=== PATIENT | female | born 1960 | race African-American/Black ===

== ENCOUNTER 2021-09-25 10:37 | Emergency (ER) | payer OTHER ==
[2021-09-25 11:13] VITALS: TEMP 97.5; O2SAT 99
[2021-09-25 11:14] VITALS: BP 141/74
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
== END 2021-09-25 11:08 | disposition home or self-care (01) ==
LOC: ER 10:37
DX: L30.9 Dermatitis, unspecified (principal); I10 Essential (primary) hypertension; Z88.1 Allergy status to other antibiotic agents
CPT/HCPCS: 99282

== ENCOUNTER 2022-01-03 10:26 | Emergency (ER) | payer OTHER ==
[2022-01-03 11:15] LABS: Absolute Lymphocytes (CBC) 2.5 K/uL (0.7-4.9); Hematocrit 37.3 % (36.0-45.0); Lymphocytes % 45.3 % (15.3-44.8); MPV 9.3 fL (7.6-11.3); RBC Red Blood Cell Count 5.41 M/uL (3.86-4.86)
[2022-01-03] MEDS ORDERED: ASPIRIN 81 MG CHEWABLE TABLET ONE (11:19)
[2022-01-03] MEDS ORDERED: MORPHINE 2 MG/ML SYR ONE (11:19)
[2022-01-03 11:20] LABS: Protime INR 1.02
--- NOTE | 2022-01-03 12:16 | RAD REPORT ---
EXAM DESCRIPTION: RAD - Chest Single View - 01/03/2022 12:08 pm CLINICAL HISTORY: SOB COMPARISON: Two view chest 04/08/2012 TECHNIQUE: AP portable chest image was obtained 01/03/2022 12:08 pm . FINDINGS: Lung volumes are low but no focal mass or consolidations seen. Failure or volume overload are not suspected. Heart and vasculature are normal. No measurable pleural effusion and no pneumothor ax. No acute bony abnormality seen. No acute aortic findings suspected. IMPRESSION: No acute cardiopulmonary process.
[2022-01-03 12:26] LABS: Albumin 3.4 g/dL (3.4-5.0); Bilirubin Direct 0.1 mg/dL (0-0.2); Bilirubin Total 0.6 mg/dL (0.2-1.0); Potassium 3.3 mmol/L (3.5-5.1); Protein, Total 7.3 g/dL (6.4-8.2); Troponin High Sensitivity 3.4 pg/mL (<58.9)
--- NOTE | 2022-01-03 12:41 | RAD REPORT ---
EXAM DESCRIPTION: US - Extremity Venous Uni Ltd - 01/03/2022 11:31 am CLINICAL HISTORY: PAIN Leg swelling and edema. COMPARISON: EXT VENOUS UNI LTD dated 04/12/2015 FINDINGS: Left lower extremity venous system was interrogated with Doppler technique. Normal flow, c ompressibility and augmentation was noted. There is no DVT present. IMPRESSION: No evidence of left lower extremity deep venous thrombosis.
--- NOTE | 2022-01-03 13:05 | RAD REPORT ---
EXAM DESCRIPTION: CT - Chest For Pe Angio - 01/03/2022 12:57 pm CLINICAL HISTORY: Chest pain. shortness of breath COMPARISON: No comparisons TECHNIQUE: CT angiogram of the pulmonary arteries was performed with MIP. All CT scans are performed using dose optimization technique as appropriate and may include automated exposure control or mA/KV adjustment according to patient size. FINDINGS: No evidence of pulmonary thromboembolism. No acute aortic finding demonstrated. The lungs are clear. No significant pericardial or pleural fluid. No concerning bony finding. IMPRESSION: No evidence of pulmonary thromboembolism. No acute lung findings.
[2022-01-03 13:28] LABS: Anisocytosis 1+; Blood Morphology Comment NOTED (NOT SEEN); Hypochromasia 1+; Platelet Estimate ADEQ; White Blood Cell Scan OK (OK)
[2022-01-03 13:29] LABS: Ovalocytes 1+
[2022-01-03] MEDS ORDERED: POTASSIUM 25 MEQ EFFERV TAB ONE (14:19)
--- NOTE | 2022-01-03 15:20 | EDPHYS ---
Physician Documentation [facility] Name: Ban Orta Age: 61 yrs Sex: Female : 1960 Arrival Date: 01/03/2022 Time: 10:28 Bed 4 Private MD: Lena Benedict K ED Physician James Vale HPI: 01/03 11:00 This 61 yrs old Black Female presents to ER via Ambulatory with complaints of Chest cp Pain, Back Pain. 11:00 The patient presents with pain that is acute, with no known mechanism of injury. The cp symptoms are located in the left subscapular area. Onset: The symptoms/episode began/occurred this morning, about 0600. The pain does not radiate. Associated signs and symptoms: Pertinent positives: shortness of breath, Pertinent negatives: abdominal pain, chest pain, numbness, weakness. 11:00 The problem was sustained from unknown cause. cp 11:00 Modifying factors: the patient symptoms are aggravated by movement. cp Historical: - Allergies: 10:38 Levaquin; ap3 - Home Meds: 10:38 Trulicity subcutaneous [Active]; atorvastatin 40 mg oral tab [Active]; losartan 50 mg ap3 oral tab [Active]; Skylar Allergy oral [Active]; - PMHx: 10:38 diabetes mellitus; Hypercholesterolemia; Hypertensive disorder; ap3 - Immunization history:: Client reports receiving the 2nd dose of the Covid vaccine. - Social history:: Smoking status: Patient denies any tobacco usage or history of. ROS: 11:05 Constitutional: Negative for body aches, chills, fever, poor PO intake. cp 11:05 Back: Positive for pain at rest, pain with movement, of the left scapular area and left cp subscapular area. 11:05 Eyes: Negative for injury, pain, redness, and discharge. cp 11:05 ENT: Negative for drainage from ear(s), ear pain, sore throat, difficulty swallowing, difficulty handling secretions. 11:05 Neck: Negative for pain with movement, pain at rest, stiffness. 11:05 Cardiovascular: Negative for chest pain, edema, palpitations. 11:05 Respiratory: Negative for cough, shortness of breath, wheezing. 11:05 Abdomen/GI: Negative for abdominal pain, nausea, vomiting, and diarrhea. 11:05 Skin: Negative for cellulitis, rash. 11:05 Neuro: Negative for altered mental status, dizziness, headache, loss of consciousness, syncope, weakness. 11:05 All other systems are negative. Exam: 11:02 ECG was reviewed by the Attending Physician. cp 11:10 Constitutional: The patient appears in no acute distress, alert, awake, cp non-diaphoretic, non-toxic, well developed, well nourished. 11:10 Head/Face: Normocephalic, atraumatic. cp 11:10 Eyes: Periorbital structures: appear normal, Conjunctiva: normal, no exudate, no injection, Sclera: no appreciated abnormality, Lids and lashes: appear normal, bilaterally. 11:10 ENT: External ear(s): are unremarkable, Nose: is normal, Mouth: Lips: moist, Oral mucosa: moist, Posterior pharynx: Airway: no evidence of obstruction, patent. 11:10 Neck: C-spine: vertebral tenderness, is not appreciated, crepitus, is not appreciated, ROM/movement: is normal, is supple, without pain, no range of motions limitations, no nuchal rigidity. 11:10 Chest/axilla: Inspection: normal, Palpation: is normal, no crepitus, no tenderness. 11:10 Cardiovascular: Rate: normal, Rhythm: regular, Pulses: Pulses are 2+ in right radial artery and left radial artery. Edema: is not appreciated, JVD: is not appreciated. 11:10 Respiratory: the patient does not display signs of respiratory distress, Respirations: normal, no use of accessory muscles, no retractions, labored breathing, is not present, Breath sounds: are clear throughout, no decreased breath sounds. 11:10 Abdomen/GI: Inspection: abdomen appears normal, Palpation: abdomen is soft and non-tender, in all quadrants. 11:10 Back: pain, that is moderate, of the left subscapular area, ROM is painful, with all movement, vertebral tenderness, is not appreciated, muscle spasm, is not present. 11:10 Skin: cellulitis, is not appreciated, no rash present. 11:10 Neuro: Orientation: to person, place \\T\\ time. Mentation: is normal, Motor: moves all fours, strength is normal, Sensation: is normal. Vital Signs: 10:35 BP 148 / 76; Pulse 81; Resp 19; Temp 97.9; Pulse Ox 100% ; Weight 88 kg; Height 5 ft. 6 ap3 in. (167.64 cm); Pain 7/10; 11:30 BP 155 / 85; Pulse 75; Resp 15; Pulse Ox 100% ; bp 13:00 BP 152 / 84; Pulse 85; Resp 18; Pulse Ox 100% ; bp 14:37 BP 165 / 78; Pulse 67; Resp 13; Pulse Ox 100% ; bp 10:35 Body Mass Index 31.31 (88.00 kg, 167.64 cm) ap3 MDM: 10:47 Patient medically screened. cp 12:00 Differential diagnosis: vertebral fracture, muscle strain, acute [place], pulmonary embolism.cp 13:54 Data reviewed: vital signs, nurses notes, lab test result(s), EKG, radiologic studies, cp CT scan, plain films, I have discussed the patient's presentation/case with the attending Emergency Department Physician; and as a result, I will repeat troponin level at 4 hour and continue to monitor. patient reports no pain at this time. 15:19 Test interpretation: by ED physician or midlevel provider: ECG, plain radiologic cp studies. 15:19 Counseling: I had a detailed discussion with the patient and/or guardian regarding: the cp historical points, exam findings, and any diagnostic results supporting the discharge/admit diagnosis, the presence of at least one elevated blood pressure reading (>120/80) during this emergency department visit, lab results, radiology results, the need for outpatient follow up, a family practitioner, to return to the emergency department if symptoms worsen or persist or if there are any questions or concerns that arise at home. Response to treatment: the patient's symptoms have markedly improved after treatment, and as a result, I will discharge patient. 01/03 11:00 Order name: Basic Metabolic Panel; Complete Time: 12:36 cp 01/03 12:36 Interpretation: Normal except: K 3.3; GLUC 111; BUN 19; GFR 63. cp 01/03 11:00 Order name: CBC with Diff; Complete Time: 13:44 cp 01/03 12:36 Interpretation: Normal except: RBC 5.41; HGB 11.5; MCV 69.0; MCH 21.2; MCHC 30.8; RDW cp 16.2; MARITZA% 40.4; LYM% 45.3; EOSINOPHIL % 4.8. 01/03 11:00 Order name: D-Dimer; Complete Time: 12:05 cp 01/03 11:00 Order name: LFT's; Complete Time: 12:36 cp 01/03 11:00 Order name: Magnesium; Complete Time: 12:36 cp 01/03 11:00 Order name: NT PRO-BNP; Complete Time: 12:36 cp 01/03 11:00 Order name: PT-INR; Complete Time: 12:05 cp 01/03 11:00 Order name: Troponin HS; Complete Time: 12:36 cp 01/03 11:00 Order name: XRAY Chest (1 view); Complete Time: 12:36 cp 01/03 11:00 Order name: US Extremity Venous Unilateral Ltd; Complete Time: 13:44 cp 01/03 13:44 Interpretation: Report reviewed. cp 01/03 11:04 Order name: COVID-19 SARS RT PCR (Document "Date of Onset" if Symptomatic); Complete kj1 Time: 12:36 01/03 12:18 Order name: CT Chest For PE Angio; Complete Time: 13:44 cp 01/03 13:44 Interpretation: Report reviewed. cp 01/03 13:29 Order name: CBC Smear Scan; Complete Time: 13:44 EDMS 01/03 14:39 Order name: Troponin HS; Complete Time: 15:18 cp 01/03 15:18 Interpretation: Reviewed. cp 01/03 11:00 Order name: EKG; Complete Time: 11:01 cp 01/03 11:00 Order name: Cardiac monitoring; Complete Time: 11:01 cp 01/03 11:00 Order name: EKG - Nurse/Tech; Complete Time: 11:01 cp 01/03 11:00 Order name: IV Saline Lock; Complete Time: 11:20 cp 01/03 11:00 Order name: Labs collected and sent; Complete Time: 11:20 cp 01/03 11:00 Order name: O2 Per Protocol; Complete Time: 11: cp 01/03 11:00 Order name: O2 Sat Monitoring; Complete Time: 11:01 cp EC:02 Rate is 82 beats/min. Rhythm is regular. IA interval is normal. QRS interval is normal. cp QT interval is normal. Interpreted by me. Reviewed by me. Administered Medications: 11:15 Drug: Aspirin Chewable Tablet 324 mg Route: PO; bp 11:22 Follow up: Response: No adverse reaction bp 11:15 Drug: morphine 2 mg Route: IVP; Rate: calculated rate; Site: left antecubital; bp 15:46 Follow up: Response: Pain is decreased bp 14:10 Drug: Potassium Effervescent Tablet 50 mEq Route: PO; bp 14:21 Follow up: Response: No adverse reaction bp Disposition Summary: 01/03/22 15:19 Discharge Ordered Location: Home cp Problem: new cp Symptoms: have improved cp Condition: Stable cp Diagnosis - Dorsalgia, unspecified cp - Hypertensive heart disease without heart failure cp Followup: cp - With: Lena Benedict MD - When: 2 - 3 days - Reason: Recheck today's complaints Discharge Instructions: - Discharge Summary Sheet cp - Acute Back Pain, Adult cp - Musculoskeletal Pain cp - Aspirin and Your Heart cp - Hypertension, Adult cp - Form - Blood Pressure Record Sheet cp - How to Take Your Blood Pressure cp Forms: - Medication Reconciliation Form cp - Thank You Letter cp - Antibiotic Education cp - Prescription Opioid Use cp - Work release form bd Prescriptions: - Cyclobenzaprine 10 mg Oral Tablet - take 1 tablet by ORAL route every 8 hours As needed; 20 tablet; Refills: 0, cp Product Selection Permitted - Diclofenac Sodium 75 mg Oral tablet,delayed release (DR/EC) - take 1 tablet by ORAL route 2 times per day; 20 tablet; Refills: 0, Product cp Selection Permitted Addendum: 01/04/2022 23:19 Co-signature as Attending Physician, James Vale MD. r n Signatures: Dispatcher [employer] EDMS James Vale MD MD rn Page, Corey, PA PA cp En Rosenberg RN RN bp Prokisch, Amanda, RN RN ap3 Corrections: (The following items were deleted from the chart) 13:43 13:41 Back: Positive for pain at rest, pain with movement, of the left scapular area cp and left subscapular area, cp
--- NOTE | 2022-01-03 15:20 | ER ---
Nurse's Notes [facility] Name: Ban Orta Age: 61 yrs Sex: Female : 1960 Arrival Date: 01/03/2022 Time: 10:28 Bed 4 Private MD: eLna Benedict K Diagnosis: Dorsalgia, unspecified;Hypertensive heart disease without heart failure Presentation: 01/03 10:35 Chief complaint: Patient states: she was sent here by here PCP for mid upper back pain ap3 that radiates through to the front of her chest. Patient states she took some tylenol this morning, which helped the intensity of the pain. Coronavirus screen: At this time, the client does not indicate any symptoms associated with coronavirus-19. Ebola Screen: No symptoms or risks identified at this time. Initial Sepsis Screen: Does the patient meet any 2 criteria? No. Patient's initial sepsis screen is negative. Does the patient have a suspected source of infection? No. Patient's initial sepsis screen is negative. Risk Assessment: Do you want to hurt yourself or someone else? Patient reports no desire to harm self or others. Onset of symptoms was January 03, 2022. 10:35 Method Of Arrival: Ambulatory ap3 10:35 Acuity: DAVID 3 ap3 Triage Assessment: 10:39 General: Appears in no apparent distress. Behavior is calm, cooperative. Pain: ap3 Complains of pain in thoracic area Pain radiates to chest Pain began suddenly, this morning. Neuro: Level of Consciousness is awake, alert, obeys commands, Oriented to person, place, time, situation, Appropriate for age Gait is steady, Speech is normal. Cardiovascular: Patient's skin is warm and dry. Respiratory: Airway is patent Respiratory effort is even, unlabored, Respiratory pattern is regular, symmetrical. Historical: - Allergies: 10:38 Levaquin; ap3 - Home Meds: 10:38 Trulicity subcutaneous [Active]; atorvastatin 40 mg oral tab [Active]; losartan 50 mg ap3 oral tab [Active]; Skylar Allergy oral [Active]; - PMHx: 10:38 diabetes mellitus; Hypercholesterolemia; Hypertensive disorder; ap3 - Immunization history:: Client reports receiving the 2nd dose of the Covid vaccine. - Social history:: Smoking status: Patient denies any tobacco usage or history of. Screenin:40 Abuse screen: Denies threats or abuse. Nutritional screening: No deficits noted. ap3 Tuberculosis screening: No symptoms or risk factors identified. 15:47 Fall Risk None identified. bp Assessment: 10:45 General: SEE TRIAGE NOTE. bp 11:48 Reassessment: No changes from previously documented assessment. Patient and/or family bp updated on plan of care and expected duration. Pain level reassessed. 13:00 Reassessment: No changes from previously documented assessment. Patient and/or family bp updated on plan of care and expected duration. Pain level reassessed. Cardiovascular: Rhythm is sinus rhythm. 14:39 Reassessment: No changes from previously documented assessment. Patient and/or family bp updated on plan of care and expected duration. Pain level reassessed. 15:47 Reassessment: PT D/C HOME AMBULATORY, DX WITH HYPERTENSION. bp Vital Signs: 10:35 BP 148 / 76; Pulse 81; Resp 19; Temp 97.9; Pulse Ox 100% ; Weight 88 kg; Height 5 ft. 6 ap3 in. (167.64 cm); Pain 7/10; 11:30 BP 155 / 85; Pulse 75; Resp 15; Pulse Ox 100% ; bp 13:00 BP 152 / 84; Pulse 85; Resp 18; Pulse Ox 100% ; bp 14:37 BP 165 / 78; Pulse 67; Resp 13; Pulse Ox 100% ; bp 10:35 Body Mass Index 31.31 (88.00 kg, 167.64 cm) ap3 ED Course: 10:28 Patient arrived in ED. am2 10:28 Lena Benedict MD is Private Physician. am2 10:38 Triage completed. ap3 10:40 Patient maintains SpO2 saturation greater than 95% on room air. ap3 10:40 Arm band placed on right wrist. ap3 10:44 Neftali Mehta PA is PHCP. cp 10:44 James Vale MD is Attending Physician. cp 10:47 En Rosenberg, MARIA ELENA is Primary Nurse. bp 10:49 EKG done, by ED staff, reviewed by James Vale MD. ap3 10:49 Patient has correct armband on for positive identification. Bed in low position. Call ap3 light in reach. Side rails up X 1. tray filler on. Pulse ox on. NIBP on. Door closed. Noise minimized. 11:03 Inserted saline lock: 20 gauge in left antecubital area, using aseptic technique. Blood bp collected. 11:22 US Extremity Venous Unilateral Ltd Sent. bp 11:33 US Extremity Venous Unilateral Ltd In Process Unspecified. EDMS 12:10 XRAY Chest (1 view) In Process Unspecified. EDMS 12:59 CT Chest For PE Angio In Process Unspecified. EDMS 15:19 Lena Benedict MD is Referral Physician. cp 15:47 No provider procedures requiring assistance completed. IV discontinued, intact, bp bleeding controlled, No redness/swelling at site. Pressure dressing applied. Administered Medications: 11:15 Drug: Aspirin Chewable Tablet 324 mg Route: PO; bp 11:22 Follow up: Response: No adverse reaction bp 11:15 Drug: morphine 2 mg Route: IVP; Rate: calculated rate; Site: left antecubital; bp 15:46 Follow up: Response: Pain is decreased bp 14:10 Drug: Potassium Effervescent Tablet 50 mEq Route: PO; bp 14:21 Follow up: Response: No adverse reaction bp Medication: 15:47 VIS not applicable for this client. bp Outcome: 15:19 Discharge ordered by MD. cp 15:47 Discharged to home ambulatory. bp 15:47 Condition: stable 15:47 Discharge instructions given to patient, Instructed on discharge instructions, follow up and referral plans. Demonstrated understanding of instructions, follow-up care. 15:48 Patient left the ED. bp Signatures: Dispatcher [employer] EDMS Neftali Mehta PA PA cp Yuko Camargo am2 En Rosenberg RN RN bp Yuko Apple RN RN ap3
[2022-01-03 15:57] VITALS: O2SAT 100
[2022-01-03 16:00] VITALS: BP 165/78
[2022-01-03 16:02] VITALS: TEMP 97.9
--- NOTE | 2022-01-04 07:56 | EKG ---
Test Date: 2022-01-03 Test Time: 10:41:48 [employer]: ALP MEASUREMENT RESULTS: Intervals: Rate: 82 TN: 156 QRSD: 72 QT: 390 QTc: 455 [place]: P: 73 TN: 156 QRS: 9 T: 10 INTERPRETIVE STATEMENTS: Normal sinus rhythm Minimal voltage criteria for LVH, may be normal variant Nonspecific T wave abnormality Abnormal ECG Compared to ECG 10/08/2006 16:07:13 Left ventricular hypertrophy now present T-wave abnormality now present Electronically Signed On 01-04-22 07:52:45 CDT by Will Hayes
== END 2022-01-03 15:48 | disposition home or self-care (01) ==
LOC: ER 10:26
DX: M54.9 Dorsalgia, unspecified (principal); I11.9 Hypertensive heart disease without heart failure; I10 Essential (primary) hypertension; E11.9 Type 2 diabetes mellitus without complications; Z79.4 Long term (current) use of insulin; E78.00 Pure hypercholesterolemia, unspecified; Z88.1 Allergy status to other antibiotic agents; Z20.822 Contact with and (suspected) exposure to COVID-19
CPT/HCPCS: 93005; 85025; 80048; 36415; 83735; 85610; 85379; 80076; 84484 ×2; 83880; 71275; 71045; 93971; 96374; 99285; U0003; Q9967; J2270